=== PATIENT | female | born 1990 | race Caucasian/White ===

== ENCOUNTER → 2019-08-01 15:25 | Observation (INO) ==
[2019-08-01 12:30] LABS: Amphetamine Screen,Urine Negative ng/mL (Cutoff=1000); Barbiturate Screen,Urine Negative ng/mL (Cutoff=200); Benzodiazepines Screen,Urine Negative ng/mL (Cutoff=200); Cannabinoid Screen,Urine Negative ng/mL (Cutoff = 50); Cocaine Screen,Urine Negative ng/mL (Cutoff= 300); Opiate Screen,Urine Negative ng/mL (Cutoff=300); Phencyclidine Screen,Urine Negative ng/mL (Cutoff=25)
[2019-08-01 13:08] LABS: Basophils % 0.3 %; Eosinophils # 0.1 K/mcL (0.0-0.6); Eosinophils % 1.8 %; Hematocrit 35.3 % (35.3-44.9); Hemoglobin 12.4 g/dL (11.5-15.4); Immature Granulocytes % 1.8 % (0-4); Lymphocytes # 1.4 K/mcL (0.6-4.6); Lymphocytes % 20.8 %; Mean Corpuscular HGB Conc 35.1 g/dL (31.6-35.5); Mean Corpuscular Hemoglobin 32.6 pg (28.0-33.3); Mean Corpuscular Volume 92.9 fL (83.0-100.0); Mean Platelet Volume 10.9 fL (9.4-12.4); Monocytes # 0.7 K/mcL (0.0-1.3); Monocytes % 10.8 %; Neutrophils # 4.3 K/mcL (1.6-8.9); Platelet Count 226 K/mcL (140-400); Red Cell Distribution Width 13.2 % (11.5-14.5); Segmented Neutrophils % 64.5 %; White Blood Count 6.7 K/mcL (4.3-11.1)
== END | disposition home or self-care (01) ==
LOC: 1NENULAB
PROVIDERS: ADMIT Advanced Practice Midwife; ATTEND Advanced Practice Midwife

== ENCOUNTER 2019-12-03 20:02 | Inpatient (IN) ==
[2019-12-03 19:59] LABS: Amphetamine Screen,Urine Negative ng/mL (Cutoff=1000); Barbiturate Screen,Urine Negative ng/mL (Cutoff=200); Benzodiazepines Screen,Urine Negative ng/mL (Cutoff=200); Cannabinoid Screen,Urine Negative ng/mL (Cutoff = 50); Cocaine Screen,Urine Negative ng/mL (Cutoff= 300); Opiate Screen,Urine Negative ng/mL (Cutoff=300); Phencyclidine Screen,Urine Negative ng/mL (Cutoff=25)
[~2019-12-03 20:02] MED LIST: *HR* FentaNYL (PF) 100 MCG/2 ML VIAL IVP PRN; D5% in Lactated Ringers 1,000 ML IVC SCH; Famotidine 20 MG/2 ML VIAL IVP PRN; Metoclopramide 10 MG/2 ML VIAL IVP PRN; Naloxone 0.4 MG/ML INJ IVP PRN; Penicillin G Potassium 5,000,000 UNIT in 0.9 % Sodium Chloride Mini Bag 100 ML IVPB ONE; Ringers Solution, Lactated 1,000 ML ONE
[2019-12-03 20:42] LABS: Basophils % 0.2 %; Eosinophils # 0.1 K/mcL (0.0-0.6); Eosinophils % 0.6 %; Hematocrit 37.7 % (35.3-44.9); Immature Granulocytes % 1.6 % (0-4); Lymphocytes # 1.6 K/mcL (0.6-4.6); Lymphocytes % 19.1 %; Mean Corpuscular HGB Conc 34.5 g/dL (31.6-35.5); Mean Corpuscular Hemoglobin 32.3 pg (28.0-33.3); Mean Corpuscular Volume 93.8 fL (83.0-100.0); Mean Platelet Volume 12.1 fL (9.4-12.4); Monocytes # 0.9 K/mcL (0.0-1.3); Monocytes % 10.8 %; Neutrophils # 5.7 K/mcL (1.6-8.9); Platelet Count 213 K/mcL (140-400); Red Blood Count 4.02 M/mcL (3.82-4.97); Red Cell Distribution Width 13.5 % (11.5-14.5); Segmented Neutrophils % 67.7 %; White Blood Count 8.4 K/mcL (4.3-11.1)
[2019-12-03] MEDS ORDERED: Ringers Solution, Lactated 1,000 ML ONE (22:39)
[2019-12-03] MEDS ORDERED: EPHEDrine 50 MG/ML VIAL IVP PRN (23:04)
[2019-12-03] MEDS ORDERED: Epidural Premix (fent/bupiv) 110 ML EP ONE (23:06)
[2019-12-03] MEDS ORDERED: Epidural Premix (fent/bupiv) 110 ML EP SCH (23:15)
[2019-12-04] MEDS ORDERED: Penicillin G Potassium 2,500,000 UNIT in 0.9 % Sodium Chloride 100 ML IVPB SCH
[2019-12-04] MEDS ORDERED: Oxytocin 20 units/ LR 1000 mL 20 UNIT/1,000 ML BAG IVC ONE ×2 (02:06→04:29)
[2019-12-04] MEDS ORDERED: Measles/Mumps/Rubella Vacc 0.5 ML VIAL SQ PRN (04:29)
[2019-12-04] MEDS ORDERED: Rho Immune Globulin 1,500 UNIT SYRINGE IM PRN (04:29)
[2019-12-04] MEDS ORDERED: Acetaminophen 325 MG TABLET PO PRN (04:29)
[2019-12-04] MEDS ORDERED: Oxytocin 20 units/ LR 1000 mL 20 UNIT/1,000 ML BAG IVC SCH (04:29)
[2019-12-04] MEDS: Ibuprofen 600 MG TABLET PO PRN ×3 (06:59→21:47)
[2019-12-04] MEDS: Famotidine 20 MG TABLET PO SCH (09:02)
[2019-12-04] MEDS: Prenatal Vit/FA 1 EACH TABLET PO SCH (09:02)
[2019-12-05 05:12] LABS: Basophils % 0.3 %; Eosinophils # 0.1 K/mcL (0.0-0.6); Hematocrit 34.5 % (35.3-44.9); Lymphocytes # 1.7 K/mcL (0.6-4.6); Lymphocytes % 22.4 %; Mean Corpuscular HGB Conc 32.8 g/dL (31.6-35.5); Mean Corpuscular Hemoglobin 31.4 pg (28.0-33.3); Mean Corpuscular Volume 95.8 fL (83.0-100.0); Monocytes # 0.8 K/mcL (0.0-1.3); Monocytes % 10.9 %; Neutrophils # 4.9 K/mcL (1.6-8.9); Platelet Count 171 K/mcL (140-400); Red Cell Distribution Width 13.4 % (11.5-14.5); Segmented Neutrophils % 64.4 %; White Blood Count 7.6 K/mcL (4.3-11.1)
[2019-12-05 05:13] LABS: Hemoglobin 11.3 g/dL (11.5-15.4)
[2019-12-05] MEDS: Ibuprofen 600 MG TABLET PO PRN (05:37)
[2019-12-05 08:16] VITALS: BP 112/56
[2019-12-05] MEDS: Prenatal Vit/FA 1 EACH TABLET PO SCH (08:20)
[2019-12-05] MEDS: Famotidine 20 MG TABLET PO SCH (08:20)
[2019-12-05] MEDS ORDERED: *HR* HYDROcodone/Acet 5/325 mg TABLET PO PRN (08:28)
[2019-12-05] MEDS ORDERED: Lidocaine/EPI 1:100k 1% 30 ML VIAL INFILT ONE (09:49)
[2019-12-05] MEDS ORDERED: Etonogestrel 68 MG IMPLANT IL ONE (09:49)
== END 2019-12-05 14:09 | disposition home or self-care (01) | DRG 807 ==
LOC: 1NENULAB → 1NENUOBS 12-04 05:12
PROVIDERS: ADMIT Obstetrics & Gynecology; ATTEND Obstetrics & Gynecology